=== PATIENT | male | born 1970 | race Caucasian/White ===

== ENCOUNTER → 2024-02-04 12:11 | Outpatient (REF) | payer OTHER, SELFPAY ==
[2024-02-04 12:44] VITALS: BP 123/86; BP_SYST 82
[2024-02-04 13:49] VITALS: BP 125/78; BP_SYST 72
== END ==
LOC: RADI 12:11
PROVIDERS: ATTENDING PHYSICIAN Internal Medicine Hematology & Oncology; FAMILY PHYSICIAN Family Medicine
DX: Z45.2 Encounter for adjustment and management of vascular access device (principal); Z85.71 Personal history of Hodgkin lymphoma
CPT/HCPCS: 36590; 77001